=== PATIENT | female | born 1965 | race Caucasian/White ===

== ENCOUNTER 2021-12-11 19:36 | Emergency (ER) | payer MEDICAID ==
[2021-12-11] MEDS ORDERED: Ibuprofen 400 MG Tab PO ONE (20:36)
[2021-12-11] MEDS ORDERED: LORazepam 1 MG Tab PO ONE (20:37)
== END 2021-12-11 22:23 | disposition home or self-care (01) ==
LOC: JP.ED 19:36
DX: F41.9 Anxiety disorder, unspecified (principal); M17.0 Bilateral primary osteoarthritis of knee; R03.0 Elevated blood-pressure reading, without diagnosis of hypertension; Z72.0 Tobacco use
CPT/HCPCS: 99283; A9270